=== PATIENT | female | born 1940 | race Caucasian/White ===

== ENCOUNTER 2016-07-04 07:20 | Inpatient (IN) | payer OTHER ==
[~2016-07-04] VITALS: Ht 167.6 cm; Wt 70.4 kg
[~2016-07-04 07:20] MED LIST: ASPIRIN81 M2 PO; ATENOLOL50 MG PO; ATIVAN0.5 MG PO; AZOR 10/20 M1 TABLET PO; CALCIUM + D3 E1 EACH PO; CINNAMON500 MG PO; CRESTOR5 MG PO; DITROPAN5 MG PO; FENOFIBRATE134 M1 PO; FENTANYL1 EAC5 TD; FLEXERIL5 MG PO; HYDROCHLOROTH12.5 M3 PO; KRILL OIL 5001 EACH PO; MEDROL DOSEPAK4 MG PO; MULTIPLE VITAM1 EACH PO; NORCO 5/3251 TABLET PO; OXYCODONE-ACET1 EACH PO; PLAVIX75 MG PO; VESICARE5 MG PO; VITAMIN D-32000 UNI2 PO; WELCHOL625 MG PO
[2016-07-04 08:31] LABS: HEMATOCRIT 41.6 % (36.0-46.0); MCH 31.2 PG (29.0-34.0); MCHC 33.4 G/DL (30.0-36.0); MCV 93.3 FL (83-99); PLATELET COUNT 240 K/uL (156-360); RBC DIS.WIDTH-CV 13.3 % (11.8-14.6); RBC DIS.WIDTH-SD 45.4 % (39-53); RED BLOOD COUNT 4.46 M/uL (3.80-5.20); WHITE BLOOD COUNT 5.2 K/uL (4.1-10.2)
[2016-07-04 08:44] LABS: CHLORIDE 106 mEq/L (99-109); POTASSIUM 3.7 mEq/L (3.7-5.4); SODIUM 136 mEq/L (136-147)
[2016-07-04 08:46] LABS: GLUCOSE 107 mg/dL (70-99)
[2016-07-04 08:47] LABS: ANION GAP 12 MEQ/L (2-14)
[2016-07-04 08:50] LABS: GFR ESTIMATE (CALCULATED) > 59 mL/min/; UREA NITROGEN (BUN) 21 mg/dL (9-23)
[2016-07-04 08:54] LABS: TROP-I INTERPRETATION NEGATIVE; TROPONIN-I < 0.01 ng/mL (0.0-0.30)
[2016-07-04] MEDS ORDERED: IMODIUM A-D2 M2 PO (11:49)
[2016-07-04 15:00] VITALS: BP 120/81; BP 124/80
[2016-07-04 15:09] LABS: C-REACTIVE PROTEIN 17.8 MG/L (0-10)
[2016-07-04 17:20] LABS: C DIFF TOXIN NEGATIVE (NEGATIVE)
[2016-07-04 17:25] LABS: PROBE CHECK PASS; SPECIMEN PROCESSING CONTROL PASS
[2016-07-04 22:52] VITALS: BP 158/70
[2016-07-05 03:14] VITALS: BP 145/81
[2016-07-05 06:52] LABS: HEMATOCRIT 35.9 % (36.0-46.0); MCH 31.1 PG (29.0-34.0); MCHC 33.4 G/DL (30.0-36.0); PLATELET COUNT 220 K/uL (156-360); RBC DIS.WIDTH-CV 13.3 % (11.8-14.6); RBC DIS.WIDTH-SD 45.5 % (39-53); RED BLOOD COUNT 3.86 M/uL (3.80-5.20); WHITE BLOOD COUNT 3.8 K/uL (4.1-10.2)
[2016-07-05 07:14] LABS: ALKALINE PHOSPHATASE 70 IU/L (3-129); ANION GAP 10 MEQ/L (2-14); CHLORIDE 107 MEQ/L (99-109); GFR ESTIMATE (CALCULATED) > 59 mL/min/; GLUCOSE 90 mg/dL (70-99); POTASSIUM 3.9 MEQ/L (3.7-5.4); SAMPLE HEMOLYSIS CHECK 0; SAMPLE ICTERIC CHECK 0; SAMPLE LIPEMIA CHECK 0; SODIUM 137 MEQ/L (136-147); TOTAL BILIRUBIN 0.4 MG/DL (0.0-1.0); UREA NITROGEN (BUN) 14 mg/dL (9-23)
[2016-07-05 07:20] VITALS: BP 122/79
[2016-07-05 10:48] LABS: ROTAVIRUS ND
[2016-07-05 13:13] VITALS: BP 138/64
[2016-07-05] MEDS ORDERED: PLAVIX75 MG PO (14:15)
[2016-07-05] MEDS ORDERED: TRILIPIX135 MG PO (14:17)
[2016-07-05] MEDS ORDERED: CRESTOR5 MG PO (14:18)
[2016-07-05] MEDS ORDERED: CALCIUM 600 +1 EA17 PO (14:23)
[2016-07-05] MEDS ORDERED: VESICARE10 MG PO (14:24)
[2016-07-05] MEDS ORDERED: AMBIEN5 MG PO (14:28)
[2016-07-05] MEDS ORDERED: FISH OIL 1,0001 EAC7 PO (14:29)
[2016-07-05] MEDS ORDERED: PROMETHAZINE12.5 M1 PO (14:30)
[2016-07-05 16:53] VITALS: BP 145/79
[2016-07-05 22:58] VITALS: BP 147/69
[2016-07-06 04:23] VITALS: BP 132/60
[2016-07-06 06:00] LABS: HEMATOCRIT 34.1 % (36.0-46.0); MCHC 34.6 G/DL (30.0-36.0); MCV 89.5 FL (83-99); PLATELET COUNT 218 K/uL (156-360); RBC DIS.WIDTH-SD 42.5 % (39-53); RED BLOOD COUNT 3.81 M/uL (3.80-5.20); WHITE BLOOD COUNT 4.3 K/uL (4.1-10.2)
[2016-07-06 06:32] LABS: ANION GAP 9 MEQ/L (2-14); CHLORIDE 107 MEQ/L (99-109); GFR ESTIMATE (CALCULATED) > 59 mL/min/; GLUCOSE 94 mg/dL (70-99); HDL CHOLESTEROL 20 MG/DL (Desirable>=50); LDL CHOLESTEROL 40 mg/dL (Desirable<100); NON-HDL CHOLESTEROL 68 mg/dL (Desirable<160); SAMPLE HEMOLYSIS CHECK 0; SAMPLE ICTERIC CHECK 0; SAMPLE LIPEMIA CHECK 0; SODIUM 139 MEQ/L (136-147); TOTAL CHOLESTEROL 88 mg/dL (Desirable<200); TRIGLYCERIDES 138 MG/DL (Normal: <150); UREA NITROGEN (BUN) 9 mg/dL (9-23)
[2016-07-06 06:33] LABS: POTASSIUM 2.9 MEQ/L (3.7-5.4)
[2016-07-06 08:31] VITALS: BP 142/64
[2016-07-06 12:09] VITALS: BP 143/76
[2016-07-06 17:13] VITALS: BP 164/67
[2016-07-06 23:35] VITALS: BP 154/70
[2016-07-07 06:33] LABS: HEMATOCRIT 34.1 % (36.0-46.0); MCH 31.5 PG (29.0-34.0); MCHC 34.3 G/DL (30.0-36.0); MCV 91.7 FL (83-99); PLATELET COUNT 214 K/uL (156-360); RBC DIS.WIDTH-CV 13.2 % (11.8-14.6); RED BLOOD COUNT 3.72 M/uL (3.80-5.20); WHITE BLOOD COUNT 5.8 K/uL (4.1-10.2)
[2016-07-07 07:04] LABS: ANION GAP 6 MEQ/L (2-14); CHLORIDE 107 MEQ/L (99-109); GFR ESTIMATE (CALCULATED) > 59 mL/min/; GLUCOSE 108 mg/dL (70-99); SAMPLE HEMOLYSIS CHECK 2; SAMPLE ICTERIC CHECK 0; SAMPLE LIPEMIA CHECK 0; SODIUM 138 MEQ/L (136-147); UREA NITROGEN (BUN) 9 mg/dL (9-23)
[2016-07-07 07:05] LABS: POTASSIUM 5.1 MEQ/L (3.7-5.4)
[2016-07-07 07:15] VITALS: BP 184/82
[2016-07-07 10:12] LABS: MAGNESIUM 1.9 mg/dl (1.3-2.7)
[2016-07-07 12:23] VITALS: BP 168/62
== END 2016-07-07 14:00 | disposition home or self-care (01) | DRG 392 ==
LOC: EME 07:20 → EDOF 12:54 → 5EAST 16:07
PROVIDERS: Emergency Medicine; Nurse Practitioner Adult Health; Nurse Practitioner Family
DX: A08.4 Viral intestinal infection, unspecified (principal); E87.6 Hypokalemia; K21.9 Gastro-esophageal reflux disease without esophagitis; E78.5 Hyperlipidemia, unspecified; I10 Essential (primary) hypertension; Z79.82 Long term (current) use of aspirin; E78.2 Mixed hyperlipidemia; Z87.891 Personal history of nicotine dependence
CPT/HCPCS: 71010; 74000; 74176; 80048; 80053; 80061; 83735; 84132 91; 84484; 85027; 86140; 87177; 87329; 87425; 87493; 93005; 99281; 99285; G0378; J1644; J2405; J3480; J7030; J7120